=== PATIENT | female | born 1990 | race Caucasian/White ===

== ENCOUNTER 2021-03-09 13:01 | Outpatient (CLI) | payer BC | END 2021-03-09 13:02 | disposition critical access hospital (66) | LOC: EMS 13:01 | DX: R55 Syncope and collapse (principal); R00.1 Bradycardia, unspecified | CPT/HCPCS: A0425; A0429 ==

== ENCOUNTER 2021-03-09 13:40 | Emergency (ER) | payer BC ==
--- NOTE | 2021-03-09 14:33 | ED Physician Documentation ---
PD HPI SYNCOPE - Stated complaint Stated Complaint: NECK PX - Chief complaint Chief Complaint: Neuro - History obtained from History obtained from: Patient - History of Present Illness Associated symptoms: No: Seizure, Incontinant of urine, Incontinant of stool Pain level max: 4 Pain level now: 3 Recently seen: Not recently seen - Additional information Additional information: Patient is a 30-year-old female who states that she has passed out several times in the past today she was standing felt lightheaded dizzy, vision went in when she passed out. This is similar to prior events. She states that she fell and struck her forehead and her nose. No other pain. No neck or back pain. No loss of continence. No tongue biting. No seizure activity. Has had multiple work-ups in the past with no cause found. Review of Systems Constitutional: denies: Fever, Chills Respiratory: denies: Cough GI: denies: Vomiting, Diarrhea Skin: denies: Rash Musculoskeletal: denies: Neck pain, Back pain Neurologic: denies: Focal weakness, Numbness, Seizure PD PAST MEDICAL HISTORY - Past Medical History Past Medical History: Yes - Past Surgical History Past Surgical History: No - Present Medications Home Medications: Ambulatory Orders Medication Instructions Recorded Confirmed Fluvoxamine Maleate [Fluvoxamine 150 mg ORAL DAILY 03/09/21 03/09/21 Maleate ER] Vedolizumab [Entyvio] 300 mg IV ONCE 03/09/21 03/09/21 - Allergies Allergies/Adverse Reactions: Allergies Allergy/AdvReac Type Severity Reaction Status Date / Time droperidol Allergy Unknown Verified 03/09/21 13:46 Penicillins Allergy Hives Verified 03/09/21 13:46 PD ED PE NORMAL - Vitals Vital signs reviewed: Yes - General General: Alert and oriented X 3, No acute distress - HEENT HEENT: Moist mucous membranes - Neck Neck: Supple, no meningeal sign - Cardiac Cardiac: RRR - Respiratory Respiratory: No respiratory distress, Clear bilaterally - Abdomen Abdomen: Soft, Non tender, Non distended - Derm Derm: Warm and dry - Extremities Extremities: No edema - Neuro Neuro: Alert and oriented X 3 Results - Vitals Vitals: Vital Signs - 24 hr 03/09/21 03/09/21 03/09/21 13:47 15:09 15:22 Temperature 36.6 C 36.9 C Heart Rate 60 68 53 L Respiratory 16 14 14 Rate Blood Pressure 123/72 68/40 L 111/71 O2 Saturation 100 100 100 03/09/21 16:00 Temperature Heart Rate 56 L Respiratory 12 Rate Blood Pressure 109/75 O2 Saturation 100 Oxygen O2 Source Room air - Labs Labs: Laboratory Tests 03/09/21 15:09 POC Whole Bld Glucose 101 H - Rads (name of study) head Ct Radiology: Final report received, EMP read contemporaneously, See rad report (1. No acute intracranial process. 2. Right frontal scalp hematoma. ) maxillofacial CT Radiology: Final report received, EMP read contemporaneously, See rad report (. Nasal bone fracture. 2. Left maxillary sinus disease. ) PD MEDICAL DECISION MAKING - ED course Complexity details: reviewed results, re-evaluated patient, considered differential, d/w patient ED course: 30-year-old female presents after what appears to be a vasovagal syncopal episo de. While getting her fingerstick performed here, she had another episode of vasovagal near syncope. She was given IV fluids, symptoms resolved and feels normal no arrhythmia at that time. She was on telemetry. We will have the patient follow-up with her doctor for further care. Does have a nasal bone fracture, but no septal hematoma and no significant deformity. We will have her follow-up with her doctor and oral maxillofacial surgery for further care. Patient counseled regarding signs and symptoms for which I believe and urgent re-evaluation would be necessary. Patient with good understanding of and agreement to plan and is comfortable going home at this time This document was made in part using voice recognition software. While efforts are made to proofread this document, sound alike and grammatical errors may occur. Departure - Departure Disposition: 01 Home, Self Care Clinical Impression: Vasovagal syncope Nasal bone fracture Qualifiers: Encounter type: initial encounter Fracture type: closed Qualified Code(s): S02.2XXA - Fracture of nasal bones, initial encounter for closed fracture Condition: Good Instructions: ED Fx Nasal Conf W X Ray, ED Syncope Vasovagal Follow-Up: your,doctor in 1 week [Other] Shekhar Bui DDS [Provider Admit Priv/Credential] - Comments: You do have a nasal bone fracture, you can follow-up with Dr. Bui, who is a local oral maxillofacial surgeon to discuss if this will need fixing. Return if you worsen. Discharge Date/Time: 03/09/21 16:08
--- NOTE | 2021-03-09 14:59 | CT Report ---
PROCEDURE: HEAD WO INDICATIONS: syncope, head injury TECHNIQUE: Noncontrast 4.5 mm thick angled axial sections acquired from the foramen magnum to the vertex. For r adiation dose reduction, the following was used: automated exposure control, adjustment of mA and/or kV according to patient size. COMPARISON: None. FINDINGS: Image quality: Excellent. CSF spaces: Basal cisterns are patent. No extra-axial fluid collections. Ventricles are normal in size and shape. Brain: No midline shift. No intracranial masses or hemorrhage. Pepe-white matter interface is norm al. Skull and face: Calvarium and visualized facial bones are intact, without suspicious lesions. Right frontal scalp hematoma. Sinuses: Visualized sinuses and mastoids are clear. IMPRESSION: 1. No acute intracranial process. 2. Right frontal scalp hematoma. Reviewed by: Kelsie Bradley MD on 03/09/2021 2:57 PM PDT Approved by: Kelsie Bradley MD on 03/09/2021 2:57 PM PDT Station ID: [id number]
--- NOTE | 2021-03-09 15:04 | CT Report ---
PROCEDURE: MAXILLOFACIAL WO INDICATIONS: syncope, nose pain TECHNIQUE: Noncontrast 1.5 mm thick axial images acquired from the mandible through the frontal sinuses, with co luigi and sagittal reformatting. For radiation dose reduction, the following was used: automated ex posure control, adjustment of mA and/or kV according to patient size. COMPARISON: None. FINDINGS: Image quality: Excellent. Bones and teeth: Orbital gonzales are intact. Sinus gonzales show no fracture or deformity. Nasal bone fr acture. Visualized portions of the mandible demonstrate no fractures or subluxation. Zygomatic arche s are intact. Pterygoid plates are intact. Visualized portions of the skull base and auditory canal s are intact. Sinuses: There is dependent soft tissue present in the left maxillary sinus as well as medial coasta l thickening. This most likely represents sinus disease and not fluid related to maxillary sinus frac ture. Nasal septal deviation to the right. Paranasal sinuses are otherwise aerated, without fluid lev els, mucosal thickening, or mucoceles. Mastoid air cells are aerated. Soft tissues: No edema, masses, or fluid collections. No enlarged lymph nodes. No soft tissue lace rations or debris. Vascular: Visualized vascular structures appear normal in the absence of contrast. Bony vascular fo ramina and canals are intact. IMPRESSION: 1. Nasal bone fracture. 2. Left maxillary sinus disease. Reviewed by: Binu Mendez MD on 03/09/2021 3:03 PM PDT Approved by: Binu Mendez MD on 03/09/2021 3:03 PM PDT Station ID: [id number]
[2021-03-09] MEDS ORDERED: SODIUM CHLORIDE 0.9% 1,000 ML IV ONE (15:20)
[2021-03-09 16:00] VITALS: BP 109/75
== END 2021-03-09 16:08 | disposition home or self-care (01) ==
LOC: ED 13:40
DX: R55 Syncope and collapse (principal); S00.03XA Contusion of scalp, initial encounter; S02.2XXA Fracture of nasal bones, initial encounter for closed fracture; S06.9X0A Unspecified intracranial injury without loss of consciousness, initial encounter; W22.03XA Walked into furniture, initial encounter; Y93.89 Activity, other specified; Y92.009 Unspecified place in unspecified non-institutional (private) residence as the place of occurrence of the external cause
CPT/HCPCS: 93005; 99282; 99284